=== PATIENT | female | born 1960 | race Caucasian/White ===

== ENCOUNTER 2022-07-28 05:24 | Day surgery (SDC) | payer MEDICAID ==
[2022-07-27 13:39] LABS: COVID AG,FIA SOURCE NASAL SWAB
[~2022-07-28] VITALS: Ht 154.9 cm; Wt 67.2 kg
[~2022-07-28 05:24] MED LIST: AMLO10TA55 PO; CHLO25TA3 PO; METO25 PO; RINGERS SOLUTION,LACTATED 500 ML IV ONE; TRAZ-252 PO
[2022-07-28] MEDS ORDERED: FentaNYL CITRATE PF 100 MCG/2 ML VIAL IVP ONE (05:25)
[2022-07-28] MEDS ORDERED: MIDAZOLAM HCL 2 MG/2 ML VIAL IVP ONE (05:25)
[2022-07-28] MEDS ORDERED: RINGERS SOLUTION,LACTATED 500 ML IV ONE (06:00)
[2022-07-28] MEDS ORDERED: KETOROLAC TROMETHAMINE 0.5% 5 ML OPHTHALMIC SOLUTION ONE (06:21)
[2022-07-28] MEDS ORDERED: MOXIFLOXACIN HCL 0.5% 3 ML OPHTHALMIC SOLUTION ONE (06:22)
[2022-07-28] MEDS ORDERED: TROPICAMIDE 1% 2 ML OPHTHALMIC SOLUTION ONE (06:22)
[2022-07-28] MEDS ORDERED: PHENYLEPHRINE HCL 2.5% 2 ML OPHTHALMIC SOLUTION ONE (06:22)
[2022-07-28] MEDS: PHENYLEPHRINE HCL 2.5% 2 ML OPHTHALMIC SOLUTION OS SCH ×3 (06:28→06:38)
[2022-07-28] MEDS: KETOROLAC TROMETHAMINE 0.5% 5 ML OPHTHALMIC SOLUTION OS SCH ×3 (06:28→06:38)
[2022-07-28] MEDS: MOXIFLOXACIN HCL 0.5% 3 ML OPHTHALMIC SOLUTION OS SCH ×3 (06:28→06:38)
[2022-07-28] MEDS: TROPICAMIDE 1% 2 ML OPHTHALMIC SOLUTION OS SCH ×3 (06:28→06:38)
== END 2022-07-28 08:50 | disposition home or self-care (01) ==
LOC: SURGERY 05:24
PROVIDERS: ATTEND Ophthalmology
DX: E11.36 Type 2 diabetes mellitus with diabetic cataract (principal); H25.12 Age-related nuclear cataract, left eye; I10 Essential (primary) hypertension; Z79.899 Other long term (current) drug therapy; Z98.890 Other specified postprocedural states
CPT/HCPCS: 93005; 87426; 66984; C9803; J3010; J2250; J7120; V2632

== ENCOUNTER 2022-08-25 06:09 | Day surgery (SDC) | payer MEDICAID ==
[~2022-08-25] VITALS: Ht 154.9 cm; Wt 67.2 kg
[~2022-08-25 06:09] MED LIST changes: +KETOROLAC TROMETHAMINE 0.5% 5 ML OPHTHALMIC SOLUTION ONE; +MOXIFLOXACIN HCL 0.5% 3 ML OPHTHALMIC SOLUTION ONE; +PHENYLEPHRINE HCL 2.5% 2 ML OPHTHALMIC SOLUTION ONE; +SUVO15TA PO; +TROPICAMIDE 1% 2 ML OPHTHALMIC SOLUTION ONE
[2022-08-25] MEDS ORDERED: RINGERS SOLUTION,LACTATED 500 ML IV ONE (06:30)
[2022-08-25 06:35] LABS: COVID AG,FIA SOURCE NASAL SWAB
[2022-08-25] MEDS: TROPICAMIDE 1% 2 ML OPHTHALMIC SOLUTION OD SCH ×3 (07:03→07:22)
[2022-08-25] MEDS: MOXIFLOXACIN HCL 0.5% 3 ML OPHTHALMIC SOLUTION OD SCH ×3 (07:03→07:13)
[2022-08-25] MEDS: PHENYLEPHRINE HCL 2.5% 2 ML OPHTHALMIC SOLUTION OD SCH ×3 (07:03→07:21)
[2022-08-25] MEDS: KETOROLAC TROMETHAMINE 0.5% 5 ML OPHTHALMIC SOLUTION OD SCH ×3 (07:03→07:20)
== END 2022-08-25 09:20 | disposition home or self-care (01) ==
LOC: SURGERY 06:09
PROVIDERS: ATTEND Ophthalmology
DX: H26.8 Other specified cataract (principal); Z53.8 Procedure and treatment not carried out for other reasons; Z87.891 Personal history of nicotine dependence; Z72.89 Other problems related to lifestyle; Z79.899 Other long term (current) drug therapy; Z98.890 Other specified postprocedural states; D64.9 Anemia, unspecified; Z20.822 Contact with and (suspected) exposure to COVID-19
CPT/HCPCS: 87426; C9803; J7120

== ENCOUNTER 2022-12-22 06:24 | Day surgery (SDC) | payer MEDICAID ==
[~2022-12-22] VITALS: Ht 154.9 cm; Wt 68.2 kg
[2022-12-22] MEDS ORDERED: POVIDONE-IODINE 5% 30 ML OPHTHALMIC SOLUTION OD ONE (06:25)
[2022-12-22] MEDS ORDERED: CHONDR SULF A SOD/HYALURONATE 1.05 ML KIT IO ONE (06:25)
[2022-12-22] MEDS ORDERED: EPINEPHrine 1:1,000 [1 MG/ML] VIAL ET ONE (06:25)
[2022-12-22] MEDS ORDERED: BALANCED SALT 15 ML OPHTHALMIC IRRIG.SOLN IO ONE (06:25)
[2022-12-22] MEDS ORDERED: LIDOCAINE/PF 1% 2 ML VIAL CAUDAL ONE (06:25)
[2022-12-22 06:44] LABS: COVID AG,FIA SOURCE NASAL SWAB
[2022-12-22] MEDS: KETOROLAC TROMETHAMINE 0.5% 5 ML OPHTHALMIC SOLUTION OD SCH ×3 (06:54→07:03)
[2022-12-22] MEDS: PHENYLEPHRINE HCL 2.5% 2 ML OPHTHALMIC SOLUTION OD SCH ×3 (06:54→07:03)
[2022-12-22] MEDS: MOXIFLOXACIN HCL 0.5% 3 ML OPHTHALMIC SOLUTION OD SCH ×3 (06:54→07:03)
[2022-12-22] MEDS: TROPICAMIDE 1% 2 ML OPHTHALMIC SOLUTION OD SCH ×3 (06:54→07:03)
[2022-12-22] MEDS ORDERED: RINGERS SOLUTION,LACTATED 500 ML IV ONE (10:00)
[2022-12-22] MEDS ORDERED: FentaNYL CITRATE PF 100 MCG/2 ML VIAL IVP ONE (12:00)
[2022-12-22] MEDS ORDERED: MIDAZOLAM HCL 2 MG/2 ML VIAL IVP ONE (12:00)
== END 2022-12-22 09:30 | disposition home or self-care (01) ==
LOC: SURGERY 06:24
PROVIDERS: ATTEND Ophthalmology
DX: H25.11 Age-related nuclear cataract, right eye (principal); I10 Essential (primary) hypertension; Z98.890 Other specified postprocedural states; Z72.89 Other problems related to lifestyle; Z79.899 Other long term (current) drug therapy; E66.3 Overweight; Z20.822 Contact with and (suspected) exposure to COVID-19
CPT/HCPCS: 66984; 87426; C9803; J0171; J3010; J3490; J2250; Q9967; J7120; V2632